=== PATIENT | male | born 1990 | race African-American/Black ===

== ENCOUNTER 2025-07-21 23:54 | Emergency (ER) | payer MEDICAID ==
[~2025-07-21] VITALS: Ht 180.3 cm; Wt 82.0 kg
[2025-07-21 23:57] VITALS: O2SAT 99
[2025-07-22 00:28] LABS: BASOPHILS % 1.1 % (0.0-2.0); EOSINOPHILS % 1.3 % (0.0-5.0); HEMATOCRIT. 38.3 % (42.0-52.0); HEMOGLOBIN. 12.6 g/dL (14.0-18.0); LYMPHOCYTES % 24.9 % (20.0-50.0); MEAN PLATELET VOLUME 7.9 fl (7.4-10.4); MONOCYTES % 9.8 % (2.0-8.0); NEUTROPHILS % 62.9 % (40.0-76.0); PLATELET 228 x1000/uL (130-400); RED BLOOD CELL COUNT 4.51 mill/uL (4.7-6.1); RED CELL DISTRIBUTION WIDTH 13.3 % (11.6-14.6)
[2025-07-22 00:41] LABS: CREATININE 0.9 mg/dL (0.6-1.3); UREA NITROGEN BLOOD 11 mg/dL (9-23)
[2025-07-22 00:42] LABS: ETHANOL BLOOD < 10 mg/dL (<10)
[2025-07-22 00:43] LABS: ASPARTATE AMINOTRANSFERASE 477 IU/L (<34); BILIRUBIN DIRECT 0.4 mg/dL (<=3.0)
[2025-07-22 00:44] LABS: BILIRUBIN TOTAL 1.5 mg/dL (0.1-1.0); PROTEIN TOTAL 7.3 g/dL (6.0-8.3)
[2025-07-22 00:47] LABS: CLARITY URINE CLEAR (CLEAR); COLOR URINE ORANGE (YELLOW); GLUCOSE URINE NEGATIVE (NEGATIVE); KETONES URINE 4+ (NEGATIVE); LEUKOCYTE ESTERASE URINE NEGATIVE (NEGATIVE); NITRITE URINE NEGATIVE (NEGATIVE); OCCULT BLOOD URINE TRACE (NEGATIVE); PH URINE 6.0 (4.5-8.0); PROTEIN URINE 1+ (NEGATIVE); SPECIFIC GRAVITY URINE 1.040 (1.005-1.030); UROBILINOGEN URINE 1.0 E.U./dL (0.2-1.0)
[2025-07-22 00:57] LABS: *AMPHETAMINES SCREEN URINE PRESUMPTIVE POSITIVE (NEGATIVE); *BARBITURATES SCREEN URINE NEGATIVE (NEGATIVE); *BENZODIAZEPINES SCREEN URINE NEGATIVE (NEGATIVE)
[2025-07-22 00:58] LABS: *COCAINE SCREEN URINE NEGATIVE (NEGATIVE); CANNABINOID URINE SCREEN PRESUMPTIVE POSITIVE (NEGATIVE); ECSTASY MDMA SCREEN URINE CONF.TEST INDICATED (NEGATIVE); METHADONE URINE SCREEN NEGATIVE (NEGATIVE); OPIATES URINE SCREEN NEGATIVE (NEGATIVE); PHENCYCLIDINE URINE SCREEN NEGATIVE (NEGATIVE)
[2025-07-22] MEDS: OLANZAPINE 10 MG/VIAL IM ONE (01:00)
[2025-07-22 01:47] LABS: SQUAMOUS EPITHELIAL CELL URINE FEW /lpf (RARE/1+); WBC URINE 0-2 /hpf (0-2)
[2025-07-22 01:48] LABS: BACTERIA URINE NONE SEEN
[2025-07-22] MEDS ORDERED: HYDROXYZINE 25MG TABLET PO PRN (09:00)
[2025-07-22] MEDS: OLANZAPINE 5MG TABLET ODT PO SCH (10:45)
[2025-07-22 12:22] VITALS: BP 107/63; PULSE 71; RESP 14; TEMP 36.7; O2SAT 99
== END 2025-07-22 12:45 ==
LOC: ER 23:54
DX: R44.0 Auditory hallucinations (principal); F12.10 Cannabis abuse, uncomplicated; F32.A Depression, unspecified; Z20.822 Contact with and (suspected) exposure to COVID-19
CPT/HCPCS: 36415; 99285; 80076; 80305; 80048; 81003; 80307; 80329; 80320; 85025; 96372; 87426; J3490; G0480

== ENCOUNTER 2025-08-19 11:27 | Emergency (ER) | payer MEDICAID ==
[~2025-08-19] VITALS: Ht 182.9 cm; Wt 97.0 kg
[2025-08-19] MEDS ORDERED: LORAZEPAM 2MG/ML UD SYRINGE IM NR (11:45)
[2025-08-19] MEDS: HALOPERIDOL LACTATE 5MG/ML VIAL IM ONE (11:52)
[2025-08-19] MEDS: LORAZEPAM 2MG/ML UD SYRINGE ONE (11:52)
[2025-08-19] MEDS: DIPHENHYDRAMINE 50MG/ML VIAL IM ONE (11:52)
[2025-08-19 12:10] LABS: BASOPHILS % 0.4 % (0.0-2.0); EOSINOPHILS % 0.1 % (0.0-5.0); HEMATOCRIT. 42.5 % (42.0-52.0); HEMOGLOBIN. 14.0 g/dL (14.0-18.0); LYMPHOCYTES % 8.9 % (20.0-50.0); MEAN PLATELET VOLUME 8.1 fl (7.4-10.4); MONOCYTES % 7.2 % (2.0-8.0); NEUTROPHILS % 83.4 % (40.0-76.0); PLATELET 197 x1000/uL (130-400); RED BLOOD CELL COUNT 4.88 mill/uL (4.7-6.1); RED CELL DISTRIBUTION WIDTH 14.8 % (11.6-14.6)
[2025-08-19 12:41] LABS: CREATININE 1.0 mg/dL (0.6-1.3); UREA NITROGEN BLOOD 10 mg/dL (9-23)
[2025-08-19 12:43] LABS: ASPARTATE AMINOTRANSFERASE 39 IU/L (<34); BILIRUBIN DIRECT 0.2 mg/dL (<=3.0); BILIRUBIN TOTAL 0.7 mg/dL (0.1-1.0); PROTEIN TOTAL 8.1 g/dL (6.0-8.3)
[2025-08-19 12:44] LABS: CLARITY URINE CLEAR (CLEAR); COLOR URINE YELLOW (YELLOW); GLUCOSE URINE NEGATIVE (NEGATIVE); KETONES URINE TRACE (NEGATIVE); LEUKOCYTE ESTERASE URINE NEGATIVE (NEGATIVE); NITRITE URINE NEGATIVE (NEGATIVE); OCCULT BLOOD URINE 2+ (NEGATIVE); PH URINE 6.5 (4.5-8.0); PROTEIN URINE 3+ (NEGATIVE); SPECIFIC GRAVITY URINE 1.020 (1.005-1.030); UROBILINOGEN URINE 0.2 E.U./dL (0.2-1.0)
[2025-08-19 12:53] VITALS: O2SAT 99
[2025-08-19 13:54] LABS: SQUAMOUS EPITHELIAL CELL URINE RARE /lpf (RARE/1+)
[2025-08-19 13:55] LABS: MUCUS URINE TRACE /lpf (NONE/TRACE); RBC URINE 0-2 /hpf (0-2)
[2025-08-19 13:56] LABS: BACTERIA URINE TRACE; WBC URINE 0-2 /hpf (0-2)
[2025-08-19 14:01] LABS: *AMPHETAMINES SCREEN URINE PRESUMPTIVE POSITIVE (NEGATIVE); *BARBITURATES SCREEN URINE NEGATIVE (NEGATIVE); *BENZODIAZEPINES SCREEN URINE NEGATIVE (NEGATIVE); *COCAINE SCREEN URINE PRESUMPTIVE POSITIVE (NEGATIVE); METHADONE URINE SCREEN NEGATIVE (NEGATIVE); OPIATES URINE SCREEN NEGATIVE (NEGATIVE); PHENCYCLIDINE URINE SCREEN NEGATIVE (NEGATIVE)
[2025-08-19 14:02] LABS: CANNABINOID URINE SCREEN PRESUMPTIVE POSITIVE (NEGATIVE); ECSTASY MDMA SCREEN URINE CONF.TEST INDICATED (NEGATIVE)
[2025-08-19] MEDS: NICOTINE 7MG PATCH TD ONE (17:45)
[2025-08-20] MEDS: OLANZAPINE 5MG TABLET ODT PO ONE (02:27)
[2025-08-20 10:32] VITALS: BP 108/69; PULSE 91; RESP 18; TEMP 36.8; O2SAT 98
== END 2025-08-20 11:32 ==
LOC: ER 11:45
DX: R46.2 Strange and inexplicable behavior (principal); R07.9 Chest pain, unspecified; Z79.899 Other long term (current) drug therapy; Z20.822 Contact with and (suspected) exposure to COVID-19
CPT/HCPCS: 80076; 80305; 80048; 81003; 80307; 80329; 80320; 82565; 85025; 36415; 93005; 96372; 99285; 87426; J1200; J1630; J2060; Z7610; G0480